=== PATIENT | male | born 1975 | race Caucasian/White ===

== ENCOUNTER 2017-05-30 18:26 | Emergency (ER) | payer BC ==
[2017-05-30 18:26] VITALS: BMI 27.9
[2017-05-30 19:47] LABS: RBC URINE 1 /hpf (0-3); URINE BACTERIA RARE (<OCC); URINE BILIRUBIN NEGATIVE (NEGATIVE); URINE BLOOD NEGATIVE (NEGATIVE); URINE COLOR Yellow (YELLOW); URINE GLUCOSE (UA) NORMAL (Normal); URINE KETONE NEGATIVE (NEGATIVE); URINE LEUKOCYTE ESTERASE NEG Leu/uL (Negative); URINE PROTEIN NEGATIVE (NEGATIVE); URINE UROBILINOGEN NORMAL mg/dL (0.2-1.0); WBC URINE 1 /hpf (0-5)
--- NOTE | 2017-05-30 20:02 | C.PDOC ---
History Of Present Illness 42 year old male presents to the ED with c/o left-sided back pain that radiates to his groin region since yesterday. Notes left testicular pain with certain movements. 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 Patient reports experiencing similar symptoms 1 month ago, which self-resolved. Patient took Naproxen yesterday without relief. He states pain is worse with movement and denies dysuria, hematuria, changes in bowel habits, penile discharge, and direct trauma/injury or falls. Time Seen by Provider: 05/30/17 19:18 Chief Complaint (Nursing): Back Pain History Per: Patient History/Exam Limitations: no limitations Onset/Duration Of Symptoms: Hrs Current Symptoms Are (Timing): Still Present Quality Of Discomfort: "Pain" Previous Symptoms: Back Pain Associated Symptoms: denies: Incontinence, New Weakness, New Numbness Exacerbating Factor(s): Movement Additional History Per: Patient Past Medical History Reviewed: Historical Data, Nursing Documentation, Vital Signs Vital Signs: Last Vital Signs Temp 97.9 F 05/30/17 21:12 Pulse 72 05/30/17 21:12 Resp 20 05/30/17 21:12 BP 119/72 05/30/17 21:12 Pulse Ox 99 05/30/17 23:28 - Medical History PMH: Asthma, Sleep Apnea Surgical History: No Surg Hx Family History: States: Unknown Family Hx - Social History Hx Alcohol Use: No Hx Substance Use: No - Immunization History Hx Tetanus Toxoid Vaccination: No Hx Influenza Vaccination: No Hx Pneumococcal Vaccination: No Review Of Systems Constitutional: Negative for: Fever, Chills Gastrointestinal: Negative for: Diarrhea, Constipation Genitourinary: Positive for: Other (groin pain ). Negative for: Dysuria, Hematuria, Penile Discharge Musculoskeletal: Positive for: Back Pain Neurological: Negative for: Weakness, Numbness Physical Exam - Physical Exam Appears: Non-toxic, Other (uncomfortable) Skin: Normal Color, Warm, Dry Head: Atraumatic, Normacephalic Eye(s): bilateral: Normal Inspection, EOMI Nose: Normal Oral Mucosa: Moist Neck: Normal ROM, Supple Chest: Symmetrical Cardiovascular: Rhythm Regular Respiratory: Normal Breath Sounds Gastrointestinal/Abdominal: Soft, No Tenderness Back: No CVA Tenderness, No Vertebral Tenderness, Paraspinal Tenderness (left- sided paralumbar and parasacral) Male Genital: No Inguinal Tenderness, No Inguinal Swelling Extremity: Normal ROM, Capillary Refill (less than 2 seconds ) Neurological/Psych: Oriented x3, Normal Speech, Normal Motor, Normal Sensation Gait: Steady ED Course And Treatment O2 Sat by Pulse Oximetry: 99 (on RA) Pulse Ox Interpretation: Normal - CT Scan/US US Scrotum Other Rad Studies (CT/US): Read By Radiologist, Radiology Report Reviewed CT/US Interpretation: EXAM: US Scrotum. EXAM DATE/TIME: 05/30/2017 7:34 PM. CLINICAL HISTORY: 42 years old, male; Pain; Scrotum pain. TECHNIQUE: Real- time ultrasound of the scrotum with color Doppler and image documentation. COMPARISON: No relevant prior studies available. FINDINGS: Right testicle: Within normal limits in appearance. Measures 4 x 1.8 x 2.9 cm. Flow seen in the right. testicle on color and Doppler imaging, with no evidence of torsion. Right epididymis: Within normal limits in appearance. Head measures 1.3 x 1.1 x 1.0 cm. Left testicle: Within normal limits in appearance. Measures 3.9 x 1.9 x 2.6 cm. Flow seen in the left. testicle on color and Doppler imaging, with no evidence of torsion. Left epididymis: Within normal limits in appearance. Measures 0.9 x 0.9 x 0.8 cm. Hydrocoele: None seen. Varicocele: Left-sided varicocele is seen. No evidence of right-sided varicocele. IMPRESSION: No evidence of testicular torsion or other significant acute abnormality. Left sided varicocele. CT abd/pel Other Rad Studies (CT/US): Read By Radiologist, Radiology Report Reviewed CT/US Interpretation: EXAM: CT Abdomen and Pelvis Without Intravenous Contrast. EXAM DATE/TIME: 05/30/2017 7:35 PM. CLINICAL HISTORY: 42 years old , male; Pain; Abdominal pain; Flank; Left lower quadrant (llq); Additional info : Left flank. pain. TECHNIQUE: Axial computed tomography images of the abdomen and pelvis without intravenous contrast. All CT. scans at this facility use one or more dose reduction techniques, viz.: automated exposure control;. ma/kV adjustment per patient size (including targeted exams where dose is matched to indication; i.e. head); or iterative reconstruction technique. Coronal and sagittal reformatted images were created and reviewed. COMPARISON: No relevant prior studies available. FINDINGS: LOWER THORAX: No infiltrate seen in the lung bases. ABDOMEN: LIVER: No acute abnormality of the liver identified. GALLBLADDER AND BILE DUCTS: No CT evidence of acute cholecystitis. No evidence of. significant biliary ductal dilatation. PANCREAS : No CT evidence of acute pancreatitis. SPLEEN: No acute abnormality of the spleen identified. ADRENALS: No acute abnormality of the adrenal glands identified. KIDNEYS AND URETERS: Low density lesion in the left kidney, most likely a cyst. This measures. 1.3 cm. No acute abnormality of the kidneys identified. No renal stones, hydronephrosis, or. hydroureter seen. STOMACH AND BOWEL: Debris/retained food material throughout the lumen of the stomach. Colonic diverticulosis, with no evidence of acute diverticulitis. Otherwise, no significant abnormality of. the bowel is identified. No evidence of bowel obstruction. APPENDIX: Appendix is seen, and is within normal limits in appearance. PELVIS: BLADDER: No acute abnormality of the bladder identified. REPRODUCTIVE: No acute abnormality of the reproductive organs is seen. ABDOMEN and PELVIS: INTRAPERITONEAL SPACE: No evidence of free intraperitoneal air or fluid. BONES/JOINTS: No acute fractures or other acute bony abnormality noted. SOFT TISSUES: No acute abnormality of the visualized soft tissues is seen. VASCULATURE: No evidence of abdominal aortic aneurysm. No evidence of periaortic. hemorrhage. LYMPH NODES: Multiple small mesenteric lymph nodes are seen, none appearing pathologically. enlarged. Findings are nonspecific, but could represent mild mesenteric adenitis. IMPRESSION: - Possible mild mesenteric adenitis. - Otherwise, no evidence of significant acute process. No evidence of nephrolithiasis or. obstructive uropathy. - Colonic diverticulosis , without acute diverticulitis. - See above for remaining findings. Progress Note: UA, Testicular US, and CT A/P ordered and reviewed. Flexeril PO and [place] lM administered. On re-evaluation, pain imporved. No bony tenderness. No change in sensation. Afebrile. (-) saddle anesthsia (-) incontinence. Instructed to follo wup with PMD in 1-2 days. Disposition - Disposition Disposition: HOME/ ROUTINE Disposition Time: 21:17 Condition: STABLE Additional Instructions: Follow up with primary medical doctor in 1-3 days without fail for further evaluation. Take medications as prescribed. Return to the emergency department at any time if symptoms persist or worsen. Prescriptions: Cyclobenzaprine [Cyclobenzaprine HCl] 10 mg PO TID #20 tab Naproxen [Naprosyn] 1 tab PO BID PRN #20 tab PRN Reason: Pain Instructions: Acute Low Back Pain (ED) Forms: [facility] [facility] ([place]), Work Excuse Print Language: [place] - Clinical Impression Clinical Impression: Low back pain - PA / [employer] / Resident Statement MD/DO has reviewed & agrees with the documentation as recorded. - Scribe Statement The provider has reviewed the documentation as recorded by the Scribe (Davina Villegas) All medical record entries made by the Scribe were at my direction and personally dictated by me. I have reviewed the chart and agree that the record accurately reflects my personal performance of the history, physical exam, medical decision making, and the department course for this patient. I have also personally directed, reviewed, and agree with the discharge instructions and disposition.
--- NOTE | 2017-05-30 21:05 | CT ---
EXAM: CT Abdomen and Pelvis Without Intravenous Contrast EXAM DATE/TIME: 05/30/2017 7:35 PM CLINICAL HISTORY: 42 years old, male; Pain; Abdominal pain; Flank; Left lower quadrant (llq); Additional info: Left flank pain TECHNIQUE: Axial computed tomography images of the abdomen and pelvis without intravenous contrast. All CT scans at this facility use one or more dose reduction techniques, viz.: automated exposure control; ma/kV adjustment per patient size (including targeted exams where dose is matched to indication; i.e. head); or iterative reconstruction technique. Coronal and sagittal reformatted images were created and reviewed. COMPARISON: No relevant prior studies available. FINDINGS: LOWER THORAX: No infiltrate seen in the lung bases. ABDOMEN: LIVER: No acute abnormality of the liver identified. GALLBLADDER AND BILE DUCTS: No CT evidence of acute cholecystitis. No evidence of significant biliary ductal dilatation. PANCREAS: No CT evidence of acute pancreatitis. SPLEEN: No acute abnormality of the spleen identified. ADRENALS: No acute abnormality of the adrenal glands identified. KIDNEYS AND URETERS: Low density lesion in the left kidney, most likely a cyst. This measures 1.3 cm. No acute abnormality of the kidneys identified. No renal stones, hydronephrosis, or hydroureter seen. STOMACH AND BOWEL: Debris/retained food material throughout the lumen of the stomach. Colonic diverticulosis, with no evidence of acute diverticulitis. Otherwise, no significant abnormality of the bowel is identified. No evidence of bowel obstruction. APPENDIX: Appendix is seen, and is within normal limits in appearance. PELVIS: BLADDER: No acute abnormality of the bladder identified. REPRODUCTIVE: No acute abnormality of the reproductive organs is seen. ABDOMEN and PELVIS: INTRAPERITONEAL SPACE: No evidence of free intraperitoneal air or fluid. BONES/JOINTS: No acute fractures or other acute bony abnormality noted. SOFT TISSUES: No acute abnormality of the visualized soft tissues is seen. VASCULATURE: No evidence of abdominal aortic aneurysm. No evidence of periaortic hemorrhage. LYMPH NODES: Multiple small mesenteric lymph nodes are seen, none appearing pathologically enlarged. Findings are nonspecific, but could represent mild mesenteric adenitis. IMPRESSION: - Possible mild mesenteric adenitis. - Otherwise, no evidence of significant acute process. No evidence of nephrolithiasis or obstructive uropathy. - Colonic diverticulosis, without acute diverticulitis. - See above for remaining findings.
--- NOTE | 2017-05-30 21:11 | US ---
EXAM: US Scrotum EXAM DATE/TIME: 05/30/2017 7:34 PM CLINICAL HISTORY: 42 years old, male; Pain; Scrotum pain TECHNIQUE: Real-time ultrasound of the scrotum with color Doppler and image documentation. COMPARISON: No relevant prior studies available. FINDINGS: Right testicle: Within normal limits in appearance. Measures 4 x 1.8 x 2.9 cm. Flow seen in the right testicle on color and Doppler imaging, with no evidence of torsion. Right epididymis: Within normal limits in appearance. Head measures 1.3 x 1.1 x 1.0 cm. Left testicle: Within normal limits in appearance. Measures 3.9 x 1.9 x 2.6 cm. Flow seen in the left testicle on color and Doppler imaging, with no evidence of torsion. Left epididymis: Within normal limits in appearance. Measures 0.9 x 0.9 x 0.8 cm. Hydrocoele: None seen. Varicocele: Left-sided varicocele is seen. No evidence of right-sided varicocele. IMPRESSION: No evidence of testicular torsion or other significant acute abnormality. Left sided varicocele. See above for remaining findings.
[2017-05-30 21:13] VITALS: BP 119/72; PULSE 72; RESP 20; TEMP 97.9
[2017-05-30 21:18] VITALS: O2SAT 99
== END 2017-05-30 21:25 | disposition home or self-care (01) ==
LOC: C.ER 18:26
DX: M54.5 Low back pain (principal)
CPT/HCPCS: 74176; 76870; 81001; 96372; 99284; J1885